=== PATIENT | female | born 1975 ===

== ENCOUNTER 2020-04-03 15:27 | Inpatient (IN) ==
[2020-04-03] MEDS ORDERED: CLINDAMYCIN INJ 600 MG in PREMIX 1 EACH IV STA (16:47)
[2020-04-03 17:50] LABS: Basophils # 0.1 10*3/uL (0.0-0.2); Basophils % 0.5 % (0.0-0.8); Eosinophils # 0.2 10*3/uL (0.0-0.87); Hematocrit 46.6 VOL% (35.7-47.0); Hemoglobin 15.8 GM/DL (12.0-16.0); Immature Granulocytes % 0.7 %; Immature Granulocytes Absolute 0.08 #; Lymphocytes % 32.7 % (21.3-54.2); Mean Corpuscular HGB Conc 33.9 GM/DL (32-36); Mean Corpuscular Volume 93.4 FL (87-102); Mean Platelet Volume 11.1 FL (9.6-12.0); Neutrophils % 57.1 % (38.7-73.9); Platelet Count 150 T/CUMM (130-400); Red Blood Count 4.99 MC/CUMM (3.8-5.5); White Blood Count 12.2 T/CUMM (4-12)
[2020-04-03 18:17] LABS: Alanine Aminotransferase 19 U/L (13-56); Albumin 2.9 G/DL (3.4-5.0); Alkaline Phosphatase 86 U/L (45-117); Aspartate Amino Transferase 22 U/L (0-37); Bilirubin,Total < 0.39 MG/DL (0.2-1.0); Blood Urea Nitrogen 8 MG/DL (7-18); Calcium 9.1 MG/DL (8.5-10.1); Estimated Glom Filtration Rate 105 ML/MIN; Glucose 88 MG/DL (74-106); Osmolality,Calculated 269.8 MOS/KG (273-304); Total Protein 7.7 G/DL (6.4-8.3)
[2020-04-03 18:45] LABS: Eosinophils 1 % (0-10); Lymphocytes 38 % (20-55); Segmented Neutrophils 54 % (50-85); Total Cells Counted 100
[2020-04-03 18:46] LABS: Reactive Lymphocytes 2+
[2020-04-03 18:47] LABS: Hypochromasia 1+; Macrocytosis Slight; Platelet Estimate Normal; Polychromasia Slight
[2020-04-03 18:48] LABS: Hypersegmented Neutrophil Few
[2020-04-03] MEDS ORDERED: GLUCAGON 1 MG VIAL IM PRN ×2 (19:01)
[2020-04-03] MEDS ORDERED: DEXTROSE 10% 250 ML BAG IV PRN (19:01)
[2020-04-03] MEDS ORDERED: ONDANSETRON 4 MG/2 ML VIAL IV PRN (19:01)
[2020-04-03] MEDS ORDERED: ACETAMINOPHEN 325 MG TABLET PO PRN (19:01)
[2020-04-03] MEDS ORDERED: DEXTROSE 50% 25 GM/50 ML VIAL IV PRN (19:01)
[2020-04-03] MEDS ORDERED: FLUCONAZOLE 100 MG TABLET PO ONE (21:00)
[2020-04-03] MEDS: MORPHINE 4 MG/1 ML VIAL IV PRN (21:43)
[2020-04-03] MEDS: GABAPENTIN 300 MG CAPSULE PO SCH (21:48)
[2020-04-03] MEDS: INSULIN LISPRO 100 UNIT/ML SUBCUT SCH (21:49)
[2020-04-03] MEDS: SODIUM CHLOR 0.9% KCL 20 MEQ 20 MEQ/1,000 ML BAG IV SCH (21:49)
[2020-04-04] MEDS: CLINDAMYCIN INJ 600 MG in PREMIX 1 EACH IV SCH ×3 (01:43→17:38)
[2020-04-04] MEDS: MORPHINE 4 MG/1 ML VIAL IV PRN ×3 (05:20→20:39)
[2020-04-04 07:02] LABS: Basophils # 0.1 10*3/uL (0.0-0.2); Basophils % 0.6 % (0.0-0.8); Eosinophils # 0.3 10*3/uL (0.0-0.87); Eosinophils % 3.3 % (0.00-10.9); Hematocrit 43.9 VOL% (35.7-47.0); Hemoglobin 14.9 GM/DL (12.0-16.0); Immature Granulocytes % 0.8 %; Immature Granulocytes Absolute 0.07 #; Lymphocytes # 2.8 10*3/uL (1.4-4.0); Lymphocytes % 32.6 % (21.3-54.2); Mean Corpuscular HGB Conc 33.9 GM/DL (32-36); Mean Corpuscular Volume 94.4 FL (87-102); Mean Platelet Volume 11.5 FL (9.6-12.0); Monocytes % 8.1 % (1.7-12.7); Neutrophils % 54.6 % (38.7-73.9); Platelet Count 149 T/CUMM (130-400); Red Blood Count 4.65 MC/CUMM (3.8-5.5); Red Cell Distribution Width 13.1 % (9.3-17.3); White Blood Count 8.6 T/CUMM (4-12)
[2020-04-04 07:21] LABS: Calcium 8.5 MG/DL (8.5-10.1); Osmolality,Calculated 269.8 MOS/KG (273-304)
[2020-04-04] MEDS: INSULIN LISPRO 100 UNIT/ML SUBCUT SCH ×4 (08:09→20:40)
[2020-04-04] MEDS: SODIUM CHLOR 0.9% KCL 20 MEQ 20 MEQ/1,000 ML BAG IV SCH ×2 (09:11→23:04)
[2020-04-04] MEDS ORDERED: BUPIVACAINE 0.25% /EPI 10 ML VIAL ONE (09:16)
[2020-04-04] MEDS ORDERED: LIDOCAINE 1%/EPI INJ 20 ML VIAL ONE (09:16)
[2020-04-04] MEDS: OXYBUTYNIN XL 10 MG TABLET PO SCH (09:20)
[2020-04-04] MEDS: lisinopriL 5 MG TABLET PO SCH (09:20)
[2020-04-04] MEDS: GABAPENTIN 300 MG CAPSULE PO SCH ×3 (09:20→20:40)
[2020-04-04] MEDS: HYDROmorphone 2 MG/1 ML VIAL IV PRN ×3 (10:17→10:51)
[2020-04-04] MEDS ORDERED: ONDANSETRON 4 MG/2 ML VIAL ONE ×2 (10:18→10:26)
[2020-04-04] MEDS ORDERED: HYDROmorphone 2 MG/1 ML VIAL ONE (10:18)
[2020-04-04] MEDS ORDERED: propofoL 200 MG/20 ML VIAL IV ONE (10:26)
[2020-04-04] MEDS ORDERED: LIDOCAINE 2% 5 ML VIAL ONE (10:26)
[2020-04-04] MEDS ORDERED: SEVOFLURANE 1 UNIT/15 MINUTE INH ONE (10:26)
[2020-04-04] MEDS ORDERED: MIDAZOLAM 2 MG/2 ML VIAL ONE (10:26)
[2020-04-04] MEDS ORDERED: fentaNYL 100 MCG/2 ML VIAL ONE (10:26)
[2020-04-04] MEDS ORDERED: ONDANSETRON 4 MG/2 ML VIAL IV PRN (10:32)
[2020-04-04] MEDS ORDERED: LACTATED RINGERS 1,000 ML IV SCH (11:00)
[2020-04-05] MEDS: CLINDAMYCIN INJ 600 MG in PREMIX 1 EACH IV SCH (01:06)
[2020-04-05] MEDS: INSULIN LISPRO 100 UNIT/ML SUBCUT SCH (07:50)
[2020-04-05] MEDS: SODIUM CHLOR 0.9% KCL 20 MEQ 20 MEQ/1,000 ML BAG IV SCH (07:51)
[2020-04-05 07:52] VITALS: BP 117/55
[2020-04-05] MEDS: lisinopriL 5 MG TABLET PO SCH (09:10)
[2020-04-05] MEDS: OXYBUTYNIN XL 10 MG TABLET PO SCH (09:10)
[2020-04-05] MEDS: GABAPENTIN 300 MG CAPSULE PO SCH (09:10)
== END 2020-04-05 09:20 | disposition home or self-care (01) | DRG 623 ==
LOC: N.ED 15:27 → SUATTDRO 19:01 → N.EDINP 19:01 → N.3E 20:43
PROVIDERS: ADMIT Internal Medicine; ATTEND Internal Medicine